=== PATIENT | male | born 1970 ===

== ENCOUNTER 2022-11-01 07:56 | Day surgery (SDC) | payer OTHER ==
[2022-10-31 11:22] VITALS: BMI 25.6
[~2022-11-01 07:56] MED LIST: LACTATED RINGERS 1,000 ML IV SCH; LIDOCAINE 1% (10MG/ML) FOR IV START INTRADERMA PRN
[2022-11-01 08:34] VITALS: TEMP 97.4
[2022-11-01] MEDS ORDERED: LIDOCAINE 2% INJ 20 MG/ML (2 ML VIAL) ONE (09:12)
[2022-11-01] MEDS ORDERED: fentaNYL (PF) 50 MCG/ML 2 ML AMP ONE (09:12)
[2022-11-01] MEDS ORDERED: PROPOFOL 10 MG/ML 20 ML VIAL IV ONE (09:12)
[2022-11-01] MEDS ORDERED: MIDAZOLAM 2 MG/2 ML VIAL ONE (09:12)
--- NOTE | 2022-11-01 09:27 | P.PCN ---
Date of Procedure: 11/01/22 Procedure(s) Performed: BRIEF HISTORY: Patient is a 51-year-old, pleasant, white male scheduled for an upper endoscopy as a part of evaluation of history of GERD. He is presently on omeprazole 20 mg daily with good control of the symptoms. PROCEDURE PERFORMED: Esophagogastroduodenoscopy with biopsy. PREOPERATIVE DIAGNOSIS: Long-standing history of GERD. IV sedation per anesthesia. PROCEDURE: After informed consent was obtained, the patient was brought into the endoscopy unit. IV sedation was administered by Anesthesia under continuous monitoring. Initially the Olympus GIF-140 video endoscope was inserted into the mouth. Esophagus intubated without any difficulty. It was gradually advanced in to the stomach and duodenum and carefully examined. The bulb and the second part of the duodenum appeared normal. The scope at this time was withdrawn to the stomach, adequately insufflated with air, and upon careful examination, mucosa of the antrum, body, cardia and the fundus appeared normal. Small gastric polyps were noted which were biopsied. The scope was then withdrawn into the esophagus. The GE junction was located at 43 cm from the incisors. The esophagus appeared normal. There were no erosions or ulcerations seen. There was a 2 mm tongue of Cordova's appearing mucosa just proximal to the GE junction which was biopsied and the patient tolerated the procedure well. IMPRESSION: 1. Small gastric polyps status post biopsy. 2. Normal-appearing esophagus with no evidence of esophagitis. 3. 2 mm tongue of Cordova's appearing mucosa in the distal esophagus status post biopsy RECOMMENDATIONS: The findings of this examination were discussed with the patient well as his family. He was advised to follow with the biopsy results. Continue with omeprazole 40 mg daily and follow antireflux measures. If the biopsy reveals Cordova's esophagus he can have a repeat upper endoscopy in years..
[2022-11-01 10:12] VITALS: BP 103/63; PULSE 74; RESP 20
== END 2022-11-01 10:19 | disposition home or self-care (01) ==
LOC: ORWHC2ENDO 07:56
PROVIDERS: ATTEND Internal Medicine Gastroenterology
DX: K31.7 Polyp of stomach and duodenum (principal); K21.00 Gastro-esophageal reflux disease with esophagitis, without bleeding; K22.70 Barrett's esophagus without dysplasia; Z79.899 Other long term (current) drug therapy
CPT/HCPCS: 88305; 43239; J2250; J3010; J2704; J2001